=== PATIENT | male | born 1975 | race Caucasian/White ===

== ENCOUNTER → 2022-12-19 08:50 | Outpatient (BNVA) | payer MEDICAID, SELFPAY | PROVIDERS: Family Provider Nurse Practitioner; PCP Family Medicine; Visit Provider Nurse Practitioner Family | DX: I10 Essential (primary) hypertension (principal) | CPT/HCPCS: 80053; 80061; 82607; 83735; 84443; 85025 ==

== ENCOUNTER 2023-05-02 12:50 | Outpatient (CLI) | payer MEDICAID, SELFPAY ==
--- NOTE | 2023-05-02 13:15 | US_ITS ---
WS: [id number] THYROID ULTRASOUND HISTORY: neck pain, enlarged lymphnodes COMPARISON: None available. Right lobe: 1.6 cm x 2.1 cm x 4.9 cm (w x ap x l). Volume: 8.7 cm3. Normal size and echotexture. No significant are dominant nodules are present. Left lobe: 2.1 cm x 1.9 cm x 4.5 cm (w x ap x l). Volume: 9.2 cm3. Mildly enlarged thyroid gland. Hypoechoic nodule in the mid gland measures 1.7 x 1.2 x 2.0 cm. There is very mild peripheral increased vascularity. No calcifications or echogenic foci. Isthmus: 0.7 cm. IMPRESSION: 1. Mildly enlarged thyroid. 2. Well-circumscribed hypoechoic nodule mid LEFT thyroid gland measures 1.7 x 1.2 x 2.0 cm. TI-RADS 4 . Recommendation is ultrasound-guided fine-needle aspiration at this time.
== END 2023-05-02 12:51 | disposition home or self-care (01) ==
LOC: RAD 12:50
PROVIDERS: Family Provider Nurse Practitioner; PCP Family Medicine; Visit Provider Nurse Practitioner Family
DX: E04.9 Nontoxic goiter, unspecified (principal)
CPT/HCPCS: 76536

== ENCOUNTER 2023-05-15 12:25 | Outpatient (CLI) | payer MEDICAID, SELFPAY ==
--- NOTE | 2023-05-15 13:15 | US_ITS ---
WS: [id number] ULTRASOUND THYROID FNA CLINICAL INFORMATION: thyroid nodule TECHNIQUE: Ultrasound-guided FNA FINDINGS: The procedure including risks, benefits, and complications were discussed with the patient who agreed to proceed. Timeout was performed. Using sterile technique patient was prepped and draped in usual sterile fashion. After 1% lidocaine, using ultrasound guidance, a 25-gauge needle was advanc ed into the LEFT mid thyroid nodule. 6 passes were made with active aspiration. Pathology was present for slide preparation. No immediate complications. Patient remained in the ultrasound suite 10 minutes postprocedure with intermittent ultrasound to ens ure no hematoma. No hematoma 10 minutes postprocedure. IMPRESSION: Uncomplicated ultrasound-guided thyroid FNA of the LEFT mid thyroid nodule
== END 2023-05-15 12:26 | disposition home or self-care (01) ==
LOC: RAD 12:25
PROVIDERS: Family Provider Nurse Practitioner; PCP Family Medicine; Visit Provider Nurse Practitioner Family
DX: E04.1 Nontoxic single thyroid nodule (principal)
CPT/HCPCS: 10005; 88173

== ENCOUNTER → 2023-06-07 13:06 | Outpatient (BNVA) | payer MEDICAID, SELFPAY | PROVIDERS: Family Provider Nurse Practitioner; PCP Family Medicine; Visit Provider Nurse Practitioner Family | DX: E78.5 Hyperlipidemia, unspecified (principal); I10 Essential (primary) hypertension | CPT/HCPCS: 80053; 80061 ==

== ENCOUNTER 2023-09-11 08:18 | Outpatient (CLI) | payer MEDICAID, SELFPAY ==
--- NOTE | 2023-09-11 08:24 | FL_ITS ---
WS: [id number] Barium swallow and esophagram, 09/11/2023 Clinical Data: DYSPHAGIA Comparison: None. Fluoroscopy time: 1min [id number] # of spot films: 21 Findings: The patient swallowed the thick and thin barium, and it flowed through the hypopharynx without hesita tion. No stricture, mass, polyp or erosion was seen. The barium entered the esophagus and there was normal motility throughout. No hiatal hernia, reflux, stricture, polyp, mass, erosion or ulcer was noted. The barium passed into the stomach normally. Impression: Normal esophagram.
--- NOTE | 2023-09-11 08:24 | CT_ITS ---
WS: [id number] CT NECK TECHNIQUE: Contrast-enhanced CT of the neck with coronal and sagittal reformatted images. CLINICAL INFORMATION: DYSPHAGIA COMPARISON: None. DLP: 235.[address] scans at [facility] [place] use at least one of these dose optimization techniques: automated e xposure control; mA and/or kV adjustment per patient size (includes targeted exams where dose is matc hed to clinical indication); or iterative reconstruction. FINDINGS: Paranasal sinuses and mastoid air cells are well aerated. Normal posterior nasopharynx. Somewhat prom inent palatine tonsils LEFT greater than RIGHT. No evidence of peritonsillar abscess or retropharynge al abscess. Dental artifact degrades some images at the tongue base. Somewhat prominent adenoid tissu e likely reactive. Normal parotid glands. Normal submandibular glands. Normal vallecula. Normal epigl ottis. Normal piriform sinuses. Medial deviation of the RIGHT true vocal cord with ballooning of the laryngeal ventricle. Medial rotation of the arytenoid. Findings compatible with vocal cord paralysis. Recommend direct visualization. Lung apices are well aerated. Normal thyroid gland. A few prominent lymph nodes partially visualized in the anterior superior mediastinum and thoracic inlet nonspecific but likely reactive. Mild spondyl itic changes cervical spine. Proximal subclavian arteries are patent. Normal enhancing thyroid tissue . Bovine arch. IMPRESSION: 1. Suspected RIGHT vocal cord paralysis. Recommend direct visualization. 2. Prominent bilateral [place] tonsils with prominent adenoid tissue. 3. Otherwise no evidence of supraglottic or glottic mass. 4. No cervical lymphadenopathy. 5. A few prominent lymph nodes at the thoracic inlet and anterior mediastinum nonspecific but likely reactive. 6. No other acute findings.
[2023-09-11] MEDS: iohexol 350 mg/mL 500 mL Btl (per mL) IV (09:09)
== END 2023-09-11 08:19 | disposition home or self-care (01) ==
LOC: RAD 08:19
PROVIDERS: Family Provider Nurse Practitioner; PCP Family Medicine; Visit Provider Specialist
DX: R13.10 Dysphagia, unspecified (principal)
CPT/HCPCS: 70491; 74220; Q9967

== ENCOUNTER → 2023-11-18 13:03 | Outpatient (BNVA) | payer MEDICAID, SELFPAY | PROVIDERS: Family Provider Nurse Practitioner; PCP Family Medicine; Visit Provider Nurse Practitioner Family | DX: N39.0 Urinary tract infection, site not specified (principal); R30.0 Dysuria | CPT/HCPCS: 81000; 87491; 87591 ==

== ENCOUNTER → 2024-03-26 11:27 | Outpatient (BNVA) | payer MEDICAID, SELFPAY | PROVIDERS: Family Provider Nurse Practitioner; PCP Family Medicine; Visit Provider Nurse Practitioner | DX: R68.89 Other general symptoms and signs (principal) | CPT/HCPCS: 87400; 87426 ==

== ENCOUNTER → 2024-06-17 14:20 | Outpatient (BNVA) | payer MEDICAID, SELFPAY | PROVIDERS: Family Provider Nurse Practitioner; Visit Provider Nurse Practitioner Family | DX: R05.9 Cough, unspecified (principal) | CPT/HCPCS: 71046 ==

== ENCOUNTER 2024-07-21 13:51 | Outpatient (CLI) | payer MEDICAID, SELFPAY ==
--- NOTE | 2024-07-21 14:15 | USCV_ITS ---
Kevin Mccord Age: 49 Gender: M : 1975 Exam Date: 07/21/2024 14:32 Ordering Phys: Марина Garcia CLAIMS COUNSEL CLAIMS COUNSEL Technologist: CT Exam Location: [facility] Indication: hf BP: 140 / 78 HR: 80 Rhythm: Sinus Technical Quality: Technically difficult study MEASUREMENTS (Male / Female) Normal Values 2D ECHO LVOT Diameter 2.1 cm LV Ejection Fraction MOD 4C 74.5 % LV Ejection Fraction MOD 2C 62.9 % LV Ejection Fraction 2C AL 64.0 % LA Diameter 3.9 cm RA Systolic Volume 4C AL 38.0 ml RA Systolic Volume 4C MOD 38.8 ml LA Sys Volume AL 50.1 cm cubed LA Sys Volume Index AL 19.7 cm cubed/m squared Aorta at Sinotubular Diameter 2.2 cm M-MODE LA Ao Ratio MM 1.7 AV Cusp Separation MM 2.2 cm DOPPLER AV Peak Velocity 208.0 cm/s LVOT Peak Velocity 163.0 cm/s AV Area Cont Eq vti 2.9 cm squared AV Area Cont Eq pk 2.6 cm squared MV Peak Velocity 96.0 cm/s MV Area PHT 3.8 cm squared Mitral E to A Ratio 1.5 TR Peak Velocity 225.5 cm/s TR Peak Gradient 20.3 mmHg TR Mean Velocity 182.0 cm/s TR Mean Gradient 14.3 mmHg TR Velocity Time Integral 50.9 cm TV Peak E Velocity 69.0 cm/s PV Peak Velocity 137.5 cm/s FINDINGS Left Ventricle Normal left ventricular size, systolic function and wall thickness, with no regional wall motion abnormalities. Left ventricular ejection fraction is estimated at 60 %. Normal diastolic function. Right Ventricle The right ventricle is normal in size and function. Right Atrium The right atrium is normal in size. Left Atrium The left atrium is normal in size. Mitral Valve Structurally normal mitral valve without significant stenosis or prolapse. There is no mitral regurgitation. Aortic Valve Structurally normal aortic valve without significant sclerosis or stenosis. There is no aortic regurgitation. Tricuspid Valve Structurally normal tricuspid valve without significant stenosis or regurgitation. Pulmonary artery systolic pressure is normal. Pulmonic Valve Structurally normal pulmonic valve without significant stenosis. There is no pulmonic regurgitation. Pericardium Normal pericardium without effusion. Aorta Normal ascending aorta dimension. IVC The inferior vena cava appears normal. CONCLUSIONS Normal left ventricular size, systolic function and wall thickness, with no regional wall motion abnormalities. Left ventricular ejection fraction is estimated at 60 %. Normal diastolic function. No significant valve abnormalities. There is no pericardial effusion. Right atrial pressure is around 5 mm of mercury. Antonio Boyce MD (Electronically Signed) Final Date: 21 July 2024 23:37 S
== END 2024-07-21 13:52 | disposition home or self-care (01) ==
LOC: RAD 13:57
PROVIDERS: Visit Provider Nurse Practitioner Family
DX: I50.9 Heart failure, unspecified (principal); R93.1 Abnormal findings on diagnostic imaging of heart and coronary circulation
CPT/HCPCS: 93306

== ENCOUNTER 2024-12-04 14:11 | Outpatient (CLI) | payer MEDICAID, SELFPAY ==
--- NOTE | 2024-12-04 14:15 | USR_ITS ---
PROCEDURE INFORMATION: Exam: US Soft Tissue Head and Neck, Soft Tissue Exam date and time: 12/04/2024 2:37 PM Age: 49 years old Clinical indication: Mass, lump, or swelling in neck; Right; Additional info: R22.1 - localized swelling, mass and lump, neck TECHNIQUE: Imaging protocol: Real-time ultrasound scan of the head and neck with image documentation. Exam focused on the soft tissue in the region of clinical concern. COMPARISON: US biopsy/FNA thyroid [id number] 05/15/2023 1:00 PM FINDINGS: Lymph nodes: Not evaluated. Soft tissues: At the site of palpable abnormality in the posterior right neck there is a heterogeneously hypoechoic smooth 5 x 5 x 10 mm nodule at the deep margin of the dermis. There is posterior acoustic accentuation from the nodule. No internal blood flow in the lesion. US/US soft tissue head neck [id number] IMPRESSION: 1 cm nodule at the deep margin of the dermis at the site of palpable abnormality in the posterior right neck. Nonspecific finding, but very likely benign. Possible sebaceous or epidermal inclusion cyst. This could be a lymph node but no internal blood flow is demonstrated. Recommend clinical follow-up.
== END 2024-12-04 14:12 | disposition home or self-care (01) ==
LOC: RAD 14:11
PROVIDERS: PCP Nurse Practitioner Family; Visit Provider Nurse Practitioner Family
DX: R22.1 Localized swelling, mass and lump, neck (principal)
CPT/HCPCS: 76536

== ENCOUNTER 2025-02-11 07:38 | Emergency (ER) | payer MEDICAID, SELFPAY ==
[2025-02-11 07:41] VITALS: BP 161/78; PULSE 80; RESP 18; TEMP 36.7; O2SAT 98
--- NOTE | 2025-02-11 07:41 | XR_ITS ---
WS: [id number] XR chest 1V portable [id number] REASON FOR EXAM: chest pain FINDINGS: The chest is unchanged compared to 06/17/2004. The heart and the mediastinum are within normal limits. There is mild central pulmonary venous congestion. There is bilateral calcified granulomatous disease. There are chronic coarse reticular interstitial lung opacities in the lower lung [place]. There is pleural scarring with pleural thickening and blunting of the costophrenic angles bilaterally. XR/XR chest 1V portable [id number] IMPRESSION: Stable abnormal chest without acute abnormality identified.
--- NOTE | 2025-02-11 07:42 | ECG_ITS ---
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 Measurements Intervals [place] Rate: 81 P: 58 SD: 166 QRS: 77 QRSD: 92 T: 66 QT: 365 QTc: 426 Interpretive Statements SINUS RHYTHM Compared to ECG 03/20/2016 13:31:48 No significant changes Electronically Signed On 02-12-2025 13:53:04 CDT by Angelique Membreno M.D. [email or web address] [id number]
--- NOTE | 2025-02-11 07:50 | ED_ITS ---
HPI - Chest Pain 2 General: Chief Complaint: Chest Pain Stated Complaint: chest pain, L arm numbess, L leg pain, dizzy Time Seen by Provider: 02/11/25 07:41 History of Present Illness: 50-year-old male presents emergency room complaining of intermittent chest pain. Usually occurs while at rest been going on for several months. He states he gets better if he gets up and walks around he does get numbness with associated to his left arm. No history of coronary artery disease. Patient had a chest x- ray that showed what appeared to be heart failure in June 2024 he had a follow-up echocardiogram that showed normal heart function normal ejection fraction normal diastolic function. Associated symptoms: Deny abdominal pain, dyspnea or fever(s) Related Data Previous Rx's ?Medication ?Instructions ?Recorded lisinopril 20 mg tablet See Rx Instructions .Route 0 03/31/24 .COMPLEX #90 tabs aspirin 81 mg tablet,delayed 81 mg PO DAILY #30 tabs 0 02/11/25 release pantoprazole 40 mg tablet,delayed 40 mg PO BID 10 days #40 tabs 02/11/25 release Allergies Allergy/AdvReac Type Severity Reaction Status Date / Time No Known Allergies Allergy Verified 11/23/24 14:29 Review of Systems 2 Const: Denies: fever(s) or chills Card: Reports: chest pain Resp: Denies: dyspnea GI: Denies: abdominal pain : Denies: dysuria, urinary frequency or urinary urgency Musc: Denies: neck pain or back pain Skin/Breast: Denies: rash PFSH ED 2 PFSH: Medical History Allergic rhinitis due to allergen GERD (gastroesophageal reflux disease) Essential hypertension Surgical History No pertinent past surgical history Family History Father Cancer Mother Hypertension Stroke Social History Smoking and tobacco/nicotine status: current some day tobacco/nicotine user Second hand smoke exposure: Yes Alcohol intake: former Substance/Drug Use: never Adopted: No Lives independently: Yes Highest education level completed: High School Graduate service: No Current occupational status: employed Current occupational exposures/hazards: No Pets and animals: Yes Do you think of yourself as: Straight/Heterosexual Current gender identity: Male Special steven needs: No Physical Exam 2 Const: GENERAL APPEARANCE: cooperative ORIENTATION/CONSCIOUSNESS: Yes awake, Yes oriented to person, Yes oriented to place and Yes oriented to time HENMT: COMMON NORMALS: normocephalic, atraumatic and hearing grossly normal bilaterally HEAD & SCALP: normocephalic and atraumatic Resp: COMMON NORMALS: normal respiratory effort, No retractions, No use of accessory muscles and clear to auscultation bilaterally AUSCULTATION: clear to auscultation bilaterally Cardio: COMMON NORMALS: regular rate, regular rhythm and No murmurs present (Cardio) RATE: regular rate RHYTHM: regular rhythm GI: COMMON NORMALS: Soft to palpation and No hepatosplenomegaly present A USCULTATION: Yes normoactive bowel sounds PALPATION: Yes Soft to palpation, No Tenderness to palpation present (GI), No Guarding due to palpation present (GI) and Yes No hepatosplenomegaly present Extremity: COMMON NORMALS: normal to inspection, capillary refill normal, no clubbing, cyanosis or edema, no calf tenderness and no pedal edema Neuro: SENSORIUM/ORIENTATION: Yes oriented to person, Yes oriented to place and Yes oriented to time Skin: COMMON NORMALS: no rashes or lesions noted GENERAL SKIN EXAM: no rashes or lesions noted Course 2 Vital Signs: Vital signs: Vital Signs Temperature 98.1 F 02/11/25 07:41 Pulse Rate 77 02/11/25 11:21 Respiratory Rate 16 02/11/25 09:34 Blood Pressure 127/82 02/11/25 11:21 Pulse Oximetry 100 02/11/25 11:21 Oxygen Delivery Me thod Room Air 02/11/25 07:41 MDM - Chest Pain Medical Decision Making Troponins negative. EKG does not show any acute changes. Patient has not had any tachypnea or hypoxia. Chest x-ray unremarkable. No sign of acute PE. No sign of acute coronary syndrome no pneumonia or pneumothorax no widening of mediastinum. Character of symptoms not suggestive of aneurysm. No evidence of decompensated congestive heart failure. Patient states he has had the symptoms for years at this time is not acutely decompensated. He said in the past he was told he had heart failure then told he did not. No history of known coronary artery disease. Echocardiogram done earlier this year shows normal EF. Discharged home. He may benefit from a stress test as an outpatient. Suspect some of this may be GI and related especially given the fact that he is reporting that he had this for years. Will start on pantoprazole started on baby aspirin daily. Medical Records I reviewed the patient's medical records. CONCLUSIONS Normal left ventricular size, systolic function and wall thickness, with no regional wall motion abnormalities. Left ventricular ejection fraction is estimated at 60 %. Normal diastolic function. No significant valve abnormalities. There is no pericardial effusion. Right atrial pressure is around 5 mm of mercury. Antonio Boyce MD (Electronically Signed) Final Date: 21 July 2024 Lab Data I reviewed the patient's lab results. 02/11/25 07:45 02/11/25 07:45 Radiology Impressions Chest X-Ray 02/11/25 07:41 IMPRESSION: Stable abnormal chest without acute abnormality identified. Laboratory Results WBC 14.70 10^3/uL (3.29-11.43) H 02/11/25 07:45 RBC 5.13 10^6/uL (3.85-5.65) 02/11/25 07:45 Hgb 14.90 g/dL (11.27-16.99) 02/11/25 07:45 Hct 45.1 % (37-53) 02/11/25 07:45 MCV 87.9 fl (82-101) 02/11/25 07:45 MCH 29.0 pg (27-33) 02/11/25 07:45 MCHC 33.0 g/dL (30-55) 02/11/25 07:45 RDW 13.4 % (12.1-15.1) 02/11/25 07:45 Plt Count 373 10^3/cmm (157-399) 02/11/25 07:45 MPV 10.8 fL (7.4-10.4) H 02/11/25 07:45 Neut % (Auto) 63.1 % 02/11/25 07:45 Lymph % (Auto) 25.2 % 02/11/25 07:45 [place] % (Auto) 8.3 % 02/11/25 07:45 Eos % (Auto) 2.4 % 02/11/25 07:45 Baso % (Auto) 0.7 % 02/11/25 07:45 Neut # (Auto) 9.26 10^3/uL (1.8-7.7) H 02/11/25 07:45 Lymph # (Auto) 3.7 10^3/uL (0.8-4.8) 02/11/25 07:45 [place] # (Auto) 1.2 10^3/uL (0.2-0.9) H 02/11/25 07:45 Eos # (Auto) 0.4 10^3/uL (0.0-0.8) 02/11/25 07:45 Baso # (Auto) 0.1 10^3/uL (0.0-0.1) 02/11/25 07:45 Nucleated RBC % (auto) 0 % 02/11/25 07:45 Nucleated RBCs # 0.0 /100WBC 02/11/25 07:45 Sodium 139 mmol/L (136-145) 02/11/25 07:45 Potassium 4.3 mmol/L (3.5-5.1) 02/11/25 07:45 Chloride 102 mmol/L (98-107) 02/11/25 07:45 Carbon Dioxide 26 mmol/L (22-29) 02/11/25 07:45 Anion Gap 15.3 (5-19) 02/11/25 07:45 BUN 17 mg/dL (6-20) 02/11/25 07:45 Creatinine 0.8 mg/dL (0.7-1.2) 02/11/25 07:45 GFR Calculation 102.7 mL/min (90-130) 02/11/25 07:45 Glucose 105 mg/dL (65-115) 02/11/25 07:45 Calculated Osmolality 290 mOsm/kg (285-295) 02/11/25 07:45 Calcium 9.2 mg/dL (8.5-10.5) 02/11/25 07:45 Total Bilirubin 0.2 mg/dL (0.15-1.2) 02/11/25 07:45 AST 19 U/L (0-40) 02/11/25 07:45 ALT 31 U/L (0-41) 02/11/25 07:45 Alkaline Phosphatase 97 U/L (40-130) 02/11/25 07:45 Troponin T Baseline 16 ng/L (0-15) H 02/11/25 07:45 Troponin T 120 Minute 10.05 ng/L (0-15) 02/11/25 09:50 Delta Troponin T -5.95 ABS# (0-10) L 02/11/25 09:50 Total Protein 7.1 g/dL (6.6-8.7) 02/11/25 07:45 Albumin 4.6 g/dL (3.5-5.2) 02/11/25 07:45 Globulin 2.5 g/dL (1.3-4.6) 02/11/25 07:45 All radiology interpretation(s) finalized by discharge EKG Data EKG 1: Interpretation: EKG 02/11/2025 7:42 AM sinus rhythm. Rate of 81 UT interval 166 QT 385. No acute ST changes no T wave inversion. Compared EKG 03/20/2016 no significant changes. EKG 2: Interpretation: EKG 02/11/2025 9:40 AM sinus rhythm. Rate of 73 parable 159 QTc 403. No acute changes noted. No ST elevation no T wave changes. No ST depression no signs of ischemia. Compared EKG done earlier today unchanged Discharge Plan Discharge Patient Disposition: Home Clinical Impression: Atypical chest pain Condition: Stable Prescriptions: New aspirin 81 mg tablet,delayed release (DR/EC) 81 mg PO DAILY Qty: 30 0RF pantoprazole 40 mg tablet,delayed release (DR/EC) 40 mg PO BID 10 Days Qty: 40 0RF Rx Instructions: 1 pill twice a day for 10 days and 1 pill daily No Action lisinopril 20 mg tablet See Rx Instructions .ROUTE .COMPLEX Qty: 90 3RF Dose Instruction: Take 1 tablet by mouth once daily Rx Instructions: Take 1 tablet by mouth once daily Discharge Orders: Discharge ED (Routine); Ordered 02/11/25 Ordered By: Keaton Travis Patient Instructions: Diet for Stomach Ulcers and Gastritis (ED), GERD (Gastroesophageal Reflux Disease) (ED), Opioid Safety, Pain Management, Patient Portal & [place] Instructions Activity Restrictions/Additional Instructions: Thank you for choosing [facility] for your healthcare needs today. It is very important that you follow up as instructed or that you return to the Emergency Department should you have concerns or if your condition changes or worsens in any way. You were seen in the emergency room complaining of chest discomfort numbness and dizziness. You would related the chest comfort of and going on for some time your chest x-ray is normal your laboratory test did not show any signs of acute coronary syndrome. Your EKGs did not show any acute changes. Will discharge home recommend you take a baby aspirin daily starting on pantoprazole 1 tablet twice a day for 10 days then 1 tablet daily. Will also set you up for an outpatient stress test and follow-up with cardiology. Print Language: Gibraltarian Coding Level of Care Code ED Mine Patrol for Amanda Mcintosh
[2025-02-11 07:52] LABS: Hematocrit 45.1 % (37-53); Hemoglobin 14.90 g/dL (11.27-16.99); Mean Corpuscular HGB Conc 33.0 g/dL (30-55); Mean Corpuscular Hemoglobin 29.0 pg (27-33); Mean Corpuscular Volume 87.9 fl (82-101); Nucleated Red Blood Cells % 0 %; Platelet Count 373 10^3/cmm (157-399); Red Blood Count 5.13 10^6/uL (3.85-5.65); White Blood Count 14.70 10^3/uL (3.29-11.43)
[2025-02-11 08:16] LABS: Alanine Aminotransferase 31 U/L (0-41); Albumin Level 4.6 g/dL (3.5-5.2); Alkaline Phosphatase 97 U/L (40-130); Anion Gap 15.3 (5-19); Aspartate Amino Transferase 19 U/L (0-40); Blood Urea Nitrogen 17 mg/dL (6-20); Calcium 9.2 mg/dL (8.5-10.5); Carbon Dioxide 26 mmol/L (22-29); Chloride 102 mmol/L (98-107); Creatinine Clr Calc Pharmacy 150.9526; Globulin 2.5 g/dL (1.3-4.6); Glucose 105 mg/dL (65-115); Osmolality Calculated 290 mOsm/kg (285-295); Potassium 4.3 mmol/L (3.5-5.1); Sodium 139 mmol/L (136-145); Total Protein 7.1 g/dL (6.6-8.7); Troponin(5th) Baseline 16 ng/L (0-15)
[2025-02-11 08:45] VITALS: BP 148/78; PULSE 77; RESP 17; O2SAT 95
[2025-02-11 09:34] VITALS: BP 126/73; PULSE 70; RESP 16; O2SAT 96
--- NOTE | 2025-02-11 09:40 | ECG_ITS ---
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
[2025-02-11 10:13] LABS: Troponin 5 2HR 10.05 ng/L (0-15)
[2025-02-11 10:16] LABS: Troponin 5 2HR Delta -5.95 ABS# (0-10)
[2025-02-11 11:21] VITALS: BP 127/82; PULSE 77; O2SAT 100
--- NOTE | 2025-02-12 07:47 | DCPLANNER ---
faxed outpatient lexiscan to scheduling
== END 2025-02-11 11:22 | disposition home or self-care (01) ==
PROVIDERS: Emergency Provider Family Medicine
DX: R07.89 Other chest pain (principal); Z72.0 Tobacco use; I10 Essential (primary) hypertension
CPT/HCPCS: 36415; 71045; 80053; 84484; 85025; 93005; 96374; 99285; J1885; J9999

== ENCOUNTER → 2025-05-06 13:45 | Outpatient (BNVA) | payer MEDICAID, SELFPAY | PROVIDERS: Visit Provider Nurse Practitioner Family | DX: I10 Essential (primary) hypertension (principal); E78.5 Hyperlipidemia, unspecified | CPT/HCPCS: 80053; 80061; 84443; 85025 ==